=== PATIENT | male | born 1980 | race African-American/Black ===

== ENCOUNTER 2017-12-10 11:26 | Emergency (ER) | payer OTHER, BC ==
--- NOTE | 2017-12-10 12:14 | ER Document Report ---
ED General - General Chief Complaint: Knee Pain Stated Complaint: KNEE PAIN Time Seen by Provider: 12/10/17 12:12 Mode of Arrival: Ambulatory Information source: Patient Notes: Patient is a 37-year-old male who complains of left knee pain that started yesterday. 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 He has a history of musculoskeletal pain and wears a knee brace and ambulates with a cane. He states that he has been taking pain medicine for migraines which is provided minimal relief for his knee pain. He denies any swelling, bruising, redness or warmth. TRAVEL OUTSIDE OF THE [place] IN LAST 30 DAYS: No - Related Data Allergies/Adverse Reactions: No Known Drug Allergies Allergy (Severe, Verified 12/10/17 11:30) G6PD Allergy (Intermediate, Uncoded 05/23/11 12:24) Past Medical History - General Information source: Patient - Social History Smoking Status: Never Smoker Chew tobacco use (# tins/day): No Frequency of alcohol use: Rare Drug Abuse: None Family History: Reviewed & Not Pertinent Patient has suicidal ideation: No Patient has homicidal ideation: No - Past Medical History Cardiac Medical History: Denies: Hx Coronary Artery Disease, Hx Heart Attack, Hx Hypertension Pulmonary Medical History: Denies: Hx Asthma, Hx Bronchitis, Hx COPD, Hx Pneumonia Neurological Medical History: Reports: Hx Migraine. Denies: Hx Cerebrovascular Accident, Hx Seizures Renal/ Medical History: Denies: Hx Peritoneal Dialysis Musculoskeltal Medical History: Reports Hx Arthritis - arthritis,bursitis, tendonitis most major joints Past Surgical History: Reports: Hx Genitourinary Surgery, Hx Orthopedic Surgery. Denies: Hx Pacemaker - Immunizations Hx Diphtheria, Pertussis, Tetanus Vaccination: No Review of Systems - Review of Systems Constitutional: No symptoms reported EENT: No symptoms reported Cardiovascular: No symptoms reported Respiratory: No symptoms reported Gastrointestinal: No symptoms reported Genitourinary: No symptoms reported Male Genitourinary: No symptoms reported Musculoskeletal: See HPI Skin: No symptoms reported Hematologic/Lymphatic: No symptoms reported Neurological/Psychological: No symptoms reported Physical Exam - Vital signs Vitals: Temp Pulse Resp BP Pulse Ox 98.2 F 79 18 110/69 98 12/10/17 11:32 12/10/17 11:32 12/10/17 11:32 12/10/17 11:32 12/10/17 11:32 - Notes Notes: PHYSICAL EXAM: CONSTITUTIONAL: Alert and oriented, well-appearing and in no acute distress. HENT: Normocephalic, atraumatic. Trachea midline. Uvula midline. Moist mucous membranes. EYES: Pupils equal round and reactive to light, EOM intact. Sclera anicteric, conjunctiva are normal. No entrapment. NECK: supple without lymphadenopathy. No midline tenderness or paraspinous muscle spasms. No step-offs or deformities. ROM intact. HEART: Regular rate and rhythm without murmurs. LUNGS: CTAB and equal. No wheezes, rales or rhonchi. EXTREMITIES:mild bony tenderness along medial aspect of left knee without erythema, edema, ecchymosis or deformity. Normal range of motion, no pitting edema. No cyanosis. Cap Refill <3 seconds. NEURO: Cranial nerves grossly intact. Normal sensory/motor exams. PSYCH: Normal mood, normal affect. SKIN: Warm and dry. Normal turgor. No rashes or lesions noted. Course - Re-evaluation Re-evalutation: 12/10/17 12:13 Patient seen and examined. Vital signs stable, no acute distress. Has knee brace and cane at bedside. No obvious deformity on exam, no erythema or edema indicative of septic arthritis. Will obtain x-rays. 12/10/17 14:45 Reviewed imaging studies and reports - negative for acute findings. Discussed results with patient. He already has knee brace and cane for ambulation. Advised NSAIDs as needed for pain. Recommended follow-up with orthopedics. At this time, will discharge with return precautions and follow-up recommendations. Verbal discharge instructions given at the bedside and opportunity for questions given. Medication warnings reviewed. Patient is in agreement with this plan and has verbalized understanding of return precautions and the need for primary care follow-up in the next 24-72 hours. - Vital Signs Vital signs: Temp Pulse Resp BP Pulse Ox 98.3 F 81 18 103/66 100 12/10/17 14:55 12/10/17 14:55 12/10/17 14:55 12/10/17 14:55 12/10/17 14:55 - Diagnostic Test Radiology reviewed: Image reviewed, Reports reviewed Discharge - Discharge Clinical Impression: Left knee sprain Qualifiers: Encounter type: initial encounter Involved ligament of knee: unspecified ligament Qualified Code(s): S83.92XA - Sprain of unspecified site of left knee, initial encounter Condition: Stable Disposition: HOME, SELF-CARE Instructions: Ice & Elevation ([facility]), Suspected Internal Knee Injury ([facility]), Sprained Knee ([facility]) Prescriptions: Naproxen [Naprosyn 250 mg Tablet] 500 mg PO DAILY PRN #20 tablet PRN Reason:
--- NOTE | 2017-12-10 14:14 | RADIOLOGY REPORT (SQ) ---
EXAM DESCRIPTION: KNEE LEFT 4 VIEW COMPLETED DATE/TIME: 12/10/2017 1:59 pm REASON FOR STUDY: pain after twisting motion COMPARISON: None. NUMBER OF VIEWS: Four views. TECHNIQUE: AP, lateral, and both oblique radiographic images acquired of the left knee. LIMITATIONS: None. FINDINGS: MINERALIZATION: Normal. BONES: No acute fracture or dislocation. No worrisome bone lesions. JOINT: No effusion. SOFT TISSUES: No soft tissue swelling. No radio-opaque foreign body. OTHER: No other significant finding. IMPRESSION: NEGATIVE STUDY OF THE LEFT KNEE. NO RADIOGRAPHIC EVIDENCE OF ACUTE INJURY. TECHNICAL DOCUMENTATION: JOB ID: [id number] [employer]- All Rights Reserved Reading location - IP/workstation name: [email or web address]
[2017-12-10 14:58] VITALS: BP 103/66
== END 2017-12-10 14:58 | disposition home or self-care (01) ==
LOC: ER 11:26
DX: M25.562 Pain in left knee (principal); S83.92XA Sprain of unspecified site of left knee, initial encounter; X50.9XXA Other and unspecified overexertion or strenuous movements or postures, initial encounter; Y93.71 Activity, boxing
CPT/HCPCS: 99283

== ENCOUNTER 2018-01-30 12:45 | Emergency (ER) | payer OTHER, BC ==
[2018-01-30] MEDS ORDERED: DIPHENHYDRAMINE HCL 50 MG/ML VIAL IM ONE (12:58)
[2018-01-30] MEDS ORDERED: PROCHLORPERAZINE EDISYLATE INJ 10 MG/2 ML VIAL IM ONE (12:58)
[2018-01-30] MEDS ORDERED: DEXAMETHASONE SOD PHOS INJ 10 MG/1 ML VIAL IM ONE (12:58)
[2018-01-30] MEDS ORDERED: KETOROLAC TROMETHAMINE 60 MG/2 ML SDV IM ONE (12:58)
--- NOTE | 2018-01-30 13:02 | ER Document Report ---
ED Medical Screen (RME) - General Chief Complaint: Headache Stated Complaint: HEADACHE Time Seen by Provider: 01/30/18 12:52 Notes: 37-year-old male with history of migraines presents emergency department complaining of a right-sided headache that started 2-1/2 days ago. Patient states that he has stopped taking his usual preventative migraine medications because he feels like they have not been working. Patient states this headache is somewhat different than his usual headache. Patient states it usually starts in the back and works as way forward, states that this headache is only in the front of his head and around his right eye. States that sometimes his migraines are like this but not always. Denies any neck pain, denies any trauma. Denies any fever but his notes that he has been sweaty. Admits to some blurry vision. TRAVEL OUTSIDE OF THE [place] IN LAST 30 DAYS: No - Related Data Allergies/Adverse Reactions: No Known Drug Allergies Allergy (Severe, Verified 01/30/18 12:52) G6PD Allergy (Intermediate, Uncoded 01/30/18 12:52) Past Medical History - General Information source: Patient - Social History Cigarette use (# per day): No Chew tobacco use (# tins/day): No Frequency of alcohol use: None Drug Abuse: None - Past Medical History Cardiac Medical History: Denies: Hx Coronary Artery Disease, Hx Heart Attack, Hx Hypertension Pulmonary Medical History: Denies: Hx Asthma, Hx Bronchitis, Hx COPD, Hx Pneumonia Neurological Medical History: Reports: Hx Migraine. Denies: Hx Cerebrovascular Accident, Hx Seizures Renal/ Medical History: Denies: Hx Peritoneal Dialysis Musculoskeltal Medical History: Reports Hx Arthritis - arthritis,bursitis, tendonitis most major joints Past Surgical History: Reports: Hx Genitourinary Surgery, Hx Orthopedic Surgery. Denies: Hx Pacemaker - Immunizations Hx Diphtheria, Pertussis, Tetanus Vaccination: No Review of Systems - Review of Systems Constitutional: See HPI, Diaphoresis. denies: Fever EENT: See HPI, Blurred vision Cardiovascular: No symptoms reported Respiratory: No symptoms reported Neurological/Psychological: See HPI, Headaches Physical Exam - General General appearance: Alert In distress: Moderate Notes: Sitting in the chair, leaning to his right hand side, covering his right eye with his hand and wearing sunglasses. - HEENT Head: Normocephalic, Atraumatic Notes: Tenderness palpation over the right temporal artery, no enlargement of the right temporal artery. Pupils are equal round reactive to light and accommodation, extraocular movements intact, no facial droop, cranial nerves II through XII are grossly intact. - Respiratory Respiratory status: No respiratory distress - Skin Skin Temperature: Warm Skin Moisture: Dry Skin Color: Normal Course - Re-evaluation Re-evalutation: 01/30/18 13:01 Patient states he has multiple allergies but cannot recall that any of them are. States that he does not think he is allergic to Toradol, Compazine or Benadryl. Patient will be given all of these in addition to Decadron to prevent rebound headache as this headache has been going on for more than 24 hours. Doubt intracranial hemorrhage at this time. ESR and CRP have been ordered as he does have the tenderness palpation over the temporal artery. Visual acuity has been ordered as the patient is complaining of blurry vision as well.
[2018-01-30 13:27] VITALS: BP 120/79
[2018-01-30 13:32] LABS: ABSOLUTE EOSINOPHILS # (AUTO) 0.1 10^3/uL (0.0-0.6); ABSOLUTE LYMPHOCYTES (AUTO) 2.6 10^3/uL (0.5-4.7); ABSOLUTE MONOCYTES (AUTO) 0.6 10^3/uL (0.1-1.4); ABSOLUTE NEUT (AUTO) 3.2 10^3/uL (1.7-8.2); BASOPHILS % (AUTO) 0.5 % (0-2); HEMATOCRIT 45.1 % (37.9-51.0); HEMOGLOBIN 15.6 g/dL (13.5-17.0); LYMPHOCYTES % (AUTO) 40.6 % (13-45); MEAN CORPUSCULAR HEMOGLOBIN 29.7 pg (27.0-33.4); MEAN CORPUSCULAR HGB CONC 34.6 g/dL (32.0-36.0); MEAN CORPUSCULAR VOLUME 86 fl (80-97); MONOCYTES % (AUTO) 8.6 % (3-13); PLATELET COUNT 197 10^3/uL (150-450); RED BLOOD COUNT 5.26 10^6/uL (4.35-5.55); RED CELL DISTRIBUTION WIDTH 12.5 % (11.5-14.0); SEGMENTED NEUTROPHILS % (AUTO) 49.3 % (42-78); TOTAL CELLS COUNTED % (AUTO) 100 %; WHITE BLOOD COUNT 6.5 10^3/uL (4.0-10.5)
[2018-01-30 13:52] LABS: ALANINE AMINOTRANSFERASE 57 U/L (21-72); ALBUMIN 4.2 g/dL (3.5-5.0); ALKALINE PHOSPHATASE 67 U/L (38-126); ANION GAP 14 (5-19); ASPARTATE AMINO TRANSFERASE 42 U/L (17-59); BILIRUBIN,DIRECT 0.3 mg/dL (0.0-0.4); BILIRUBIN,TOTAL 0.8 mg/dL (0.2-1.3); BLOOD UREA NITROGEN 10 mg/dL (7-20); CALCIUM 9.6 mg/dL (8.4-10.2); CARBON DIOXIDE 30 mmol/L (22-30); CHLORIDE 104 mmol/L (98-107); GLUCOSE 94 mg/dL (75-110); POTASSIUM 4.1 mmol/L (3.6-5.0); SODIUM 147.6 mmol/L (137-145); TOTAL PROTEIN 7.1 g/dL (6.3-8.2)
[2018-01-30 13:54] LABS: C-REACTIVE PROTEIN < 5.0 mg/L (<10.0)
[2018-01-30 14:11] LABS: ERYTHROCYTE SEDIMENTATION RATE 4 mm/hr (0-15)
[2018-01-30] MEDS ORDERED: NORMAL SALINE 500 ML IV ONE (14:14)
[2018-01-30] MEDS ORDERED: MORPHINE SULFATE 10 MG/ML INJ IV ONE (14:15)
--- NOTE | 2018-01-30 14:16 | ER Document Report ---
ED General - General Chief Complaint: Headache Stated Complaint: HEADACHE Time Seen by Provider: 01/30/18 12:52 Mode of Arrival: Ambulatory Information source: Patient Notes: This is a 37-year-old man with a history of migraine headaches (he has been off all medicines), [id number] dehydrogenase deficiency, arthritis who presents to the emergency room with a headache for the past 2 days. This is similar to previous headaches. He does report nausea. He denies any fever, chills, nausea or vomiting. TRAVEL OUTSIDE OF THE [place] IN LAST 30 DAYS: No - HPI Onset: Yesterday Onset/Duration: Gradual Quality of pain: Dull Severity: Moderate Pain Level: 2 Associated symptoms: denies: Chills, Fever, Shortness of breath Exacerbated by: Movement Relieved by: Denies Similar symptoms previously: No Recently seen / treated by doctor: No - Related Data Allergies/Adverse Reactions: No Known Drug Allergies Allergy (Severe, Verified 01/30/18 12:52) G6PD Allergy (Intermediate, Uncoded 01/30/18 12:52) Past Medical History - General Information source: Patient - Social History Smoking Status: Never Smoker Cigarette use (# per day): No Chew tobacco use (# tins/day): No Frequency of alcohol use: None Drug Abuse: None Lives with: Family Family History: Reviewed & Not Pertinent Patient has suicidal ideation: No Patient has homicidal ideation: No - Past Medical History Cardiac Medical History: Denies: Hx Coronary Artery Disease, Hx Heart Attack, Hx Hypertension Pulmonary Medical History: Denies: Hx Asthma, Hx Bronchitis, Hx COPD, Hx Pneumonia Neurological Medical History: Reports: Hx Migraine. Denies: Hx Cerebrovascular Accident, Hx Seizures Renal/ Medical History: Denies: Hx Peritoneal Dialysis Musculoskeltal Medical History: Reports Hx Arthritis - arthritis,bursitis, tendonitis most major joints Past Surgical History: Reports: Hx Genitourinary Surgery, Hx Orthopedic Surgery. Denies: Hx Pacemaker - Immunizations Hx Diphtheria, Pertussis, Tetanus Vaccination: No Review of Systems - Review of Systems Constitutional: denies: Chills, Fever EENT: No symptoms reported Cardiovascular: No symptoms reported Respiratory: No symptoms reported Gastrointestinal: No symptoms reported Genitourinary: No symptoms reported Male Genitourinary: No symptoms reported Musculoskeletal: No symptoms reported Skin: No symptoms reported Hematologic/Lymphatic: No symptoms reported Neurological/Psychological: See HPI Physical Exam - Vital signs Vitals: Temp Pulse Resp BP Pulse Ox 98.7 F 107 H 16 120/79 96 01/30/18 12:48 01/30/18 12:48 01/30/18 12:48 01/30/18 12:48 01/30/18 12:48 Notes: Physical exam: GENERAL: 37-year-old man, alert and oriented 3, mild distress HEAD: Atraumatic, normocephalic. EYES: Pupils equal round and reactive to light, extraocular movements intact, sclera anicteric, conjunctiva are normal. ENT: TMs normal, nares patent, oropharynx clear without exudates. Moist mucous membranes. NECK: Normal range of motion, supple without obvious mass or JVD. LUNGS: Breath sounds clear to auscultation bilaterally and equal. No wheezes rales or rhonchi. HEART: Regular rate and rhythm without murmurs, rubs or gallops. ABDOMEN: Soft, normoactive bowel sounds. No tenderness to palpation. No guarding, no rebound. No masses appreciated. EXTREMITIES: Normal range of motion, no pitting or edema. No clubbing or cyanosis. NEUROLOGICAL: Cranial nerves II through XII grossly intact. Normal speech, moving all extremities. Photophobia is present, neck is supple, no Kernig's or Brudzinski's. PSYCH: Normal mood, normal affect. SKIN: Warm, Dry, normal turgor, no rashes or lesions noted. Course - Vital Signs Vital signs: Temp Pulse Resp BP Pulse Ox 98.7 F 107 H 16 120/79 96 01/30/18 12:48 01/30/18 12:48 01/30/18 12:48 01/30/18 12:48 01/30/18 12:48 - Laboratory Result Diagrams: 01/30/18 13:15 01/30/18 13:15 Laboratory results interpreted by me: 01/30/18 13:15 Sodium 147.6 H Discharge - Discharge Clinical Impression: Migraine headache Condition: Stable Disposition: HOME, SELF-CARE Instructions: Antinausea Medication ([facility]), Intravenous Compazine for Headaches ([facility]), Use of Diphenhydramine, Headache ([facility]), Reglan ([facility]) Additional Instructions: Note: Your labs looked good today. You were given a number of medicines for the migraine headache they are as follows: Compazine 10 mg IM (this is a nausea medicine that has migraine affects) Toradol 30 mg IM (this is an anti-inflammatory medicine) Benadryl 50 mg IM (this is often given with the nausea medicine and sometimes has synergistic effects for the headache). Your also given medicines through the IV: Reglan 10 mg IV (this is an antimigraine-nausea medicine). IV fluids IV morphine (4 mg: A relatively small dose). You were given oral medicines: 2 tabs of Fioricet Recommendations: Rest, drink plenty of fluids, take the Fioricet as needed. You can add ibuprofen to it. I would like you to follow-up with a neurologist. I put the name for 1 associated with the hospital. Return to the emergency room for worsening headache, fever or any concerns or getting worse. Prescriptions: Butalbital/Aspirin/Caffeine [Fiorinal 50-325-40 mg Capsule] 1 cap PO Q4 PRN #30 cap PRN Reason: Forms: Return to Work
[2018-01-30] MEDS ORDERED: METOCLOPRAMIDE HCL INJ/PF 10 MG/2 ML SDV IV ONE (16:12)
[2018-01-30] MEDS ORDERED: BUTALB/ACETAMINOPHEN/CAFFEINE 1 TAB EACH PO ONE (17:23)
== END 2018-01-30 18:59 | disposition home or self-care (01) ==
LOC: ER 12:45
DX: G43.909 Migraine, unspecified, not intractable, without status migrainosus (principal); R11.0 Nausea
CPT/HCPCS: 99283; 96372; 96374; 96375; 36415; 85025; 85652; 86140; 80053; J3490; J1200; J1885; J2765; J2270; J0780; J7040; J1100

== ENCOUNTER 2018-02-01 02:40 | Emergency (ER) | payer OTHER, BC ==
[2018-02-01] MEDS ORDERED: DEXAMETHASONE SOD PHOS INJ 10 MG/1 ML VIAL IV ONE (03:31)
[2018-02-01] MEDS ORDERED: NORMAL SALINE 1000 ML 1,000 ML IV ONE (03:31)
[2018-02-01] MEDS ORDERED: KETOROLAC TROMETHAMINE INJ/PF 30 MG/1 ML SDV IV ONE (03:31)
[2018-02-01] MEDS ORDERED: METOCLOPRAMIDE HCL INJ/PF 10 MG/2 ML SDV IV ONE (03:31)
[2018-02-01] MEDS ORDERED: HALOPERIDOL LACTATE INJ 5 MG/1 ML VIAL IV ONE (03:32)
--- NOTE | 2018-02-01 04:08 | ER Document Report ---
ED General - General Chief Complaint: Headache Stated Complaint: HEADACHE Time Seen by Provider: 02/01/18 03:31 Notes: Patient is a 37-year-old male who presents with 4 days of an ongoing migraine headache. He was seen in the emergency department 2 days ago for the same, at that time he states he had some improvement with the medications but not complete resolution. He states that the headache has been gradually worsening since onset. He describes the headache as a severe, throbbing, splitting pain to the bitemporal region. Worsened by movement, sounds or exertion. He has tried Fioricet without any improvement of the pain. He notes that he used to be on preventative medications but discontinued these some time ago and has had more regular and more intense headaches since that time. He has not seen a neurologist or his primary care doctor recently regarding his migraines. He denies any fever or constitutional symptoms. No focal weakness, numbness or altered mental status. He states this is very typical for his migraine headaches and that his headache again feels like a typical migraine headache for him. TRAVEL OUTSIDE OF THE [place] IN LAST 30 DAYS: No - Related Data Allergies/Adverse Reactions: No Known Drug Allergies Allergy (Severe, Verified 01/30/18 12:52) G6PD Allergy (Intermediate, Uncoded 01/30/18 12:52) Past Medical History - General Information source: Patient - Social History Smoking Status: Never Smoker Frequency of alcohol use: None Drug Abuse: None Lives with: Spouse/Significant other Family History: Reviewed & Not Pertinent Patient has suicidal ideation: No Patient has homicidal ideation: No - Past Medical History Cardiac Medical History: Denies: Hx Coronary Artery Disease, Hx Heart Attack, Hx Hypertension Pulmonary Medical History: Denies: Hx Asthma, Hx Bronchitis, Hx COPD, Hx Pneumonia Neurological Medical History: Reports: Hx Migraine. Denies: Hx Cerebrovascular Accident, Hx Seizures Renal/ Medical History: Denies: Hx Peritoneal Dialysis Musculoskeltal Medical History: Reports Hx Arthritis - arthritis,bursitis, tendonitis most major joints Past Surgical History: Reports: Hx Genitourinary Surgery, Hx Orthopedic Surgery. Denies: Hx Pacemaker - Immunizations Hx Diphtheria, Pertussis, Tetanus Vaccination: No Review of Systems - Review of Systems Notes: Constitutional: Negative for fever. HENT: Negative for sore throat. Eyes: Negative for visual changes. Cardiovascular: Negative for chest pain. Respiratory: Negative for shortness of breath. Gastrointestinal: Negative for abdominal pain, vomiting or diarrhea. Genitourinary: Negative for dysuria. Musculoskeletal: Negative for back pain. Skin: Negative for rash. Neurological: Positive for headache 10 point ROS negative except as marked above and in HPI. Physical Exam - Vital signs Vitals: Temp Pulse Resp BP Pulse Ox 98.8 F 92 16 116/71 95 02/01/18 02:56 02/01/18 02:56 02/01/18 02:56 02/01/18 02:56 02/01/18 02:56 Interpretation: Normal Notes: PHYSICAL EXAMINATION: GENERAL: Well-appearing, well-nourished and in no acute distress. HEAD: Atraumatic, normocephalic. EYES: Pupils equal round and reactive to light, extraocular movements intact, sclera anicteric, conjunctiva are normal. ENT: nares patent, oropharynx clear without exudates. Moist mucous membranes. NECK: Normal range of motion, supple without lymphadenopathy LUNGS: Breath sounds clear to auscultation bilaterally and equal. No wheezes rales or rhonchi. HEART: Regular rate and rhythm without murmurs ABDOMEN: Soft, nontender, normoactive bowel sounds. No guarding, no rebound. No masses appreciated. EXTREMITIES: Normal range of motion, no pitting or edema. No cyanosis. NEUROLOGICAL: Face symmetric. Tongue protrudes midline. Extraocular motions intact. Pupils are 2 mm and equally reactive. Normal speech, normal gait. 5 out of 5 strength in both the distal and proximal upper and lower extremities bilaterally. Sensation is grossly intact throughout. Finger to nose testing normal. Pronator drift normal. PSYCH: Normal mood, normal affect. SKIN: Warm, Dry, normal turgor, no rashes or lesions noted. Course - Re-evaluation Re-evalutation: 02/01/18 04:06 Presentation of a headache that appears to be most consistent with tension versus migrainous type headache. Headache was not maximal in onset, patient has no focal neurologic deficits, no nuchal rigidity, vital signs within normal limits, no papilledema, and patient is overall well in appearance. Based on clinical history and examination I do not suspect an acute subarachnoid hemorrhage, dural venous sinus thrombosis, acute meningitis, or intercranial mass. Given my low clinical suspicion for any acute life-threatening etiology, I do not feel advanced neuro imaging or laboratory testing is indicated at this time. Patient has had resolution of his headache after receiving a migraine cocktail. At this time will discharge with return precautions and follow-up recommendations. Verbal discharge instructions given a the bedside and opportunity for questions given. Medication warnings reviewed. Patient is in agreement with this plan and has verbalized understanding of return precautions and the need for primary care follow-up in the next 24-72 hours. - Vital Signs Vital signs: Temp Pulse Resp BP Pulse Ox 98.8 F 92 16 116/71 95 02/01/18 02:56 02/01/18 02:56 02/01/18 02:56 02/01/18 02:56 02/01/18 02:56 Discharge - Discharge Clinical Impression: Migraine headache Qualifiers: Migraine type: unspecified Status migrainosus presence: with status migrainosus Intractability: not intractable Qualified Code(s): G43.901 - Migraine, unspecified, not intractable, with status migrainosus Condition: Good Disposition: HOME, SELF-CARE Additional Instructions: You were seen today for a migraine headache. Please follow-up with your primary care doctor regarding today's ED visit. Return to emergency department immediately if you develop a headache that gets to its maximum severity within 20 minutes of onset, you pass out, you develop weakness, numbness, changes in your vision, become unable to keep any fluids down for more than 12 hours, or develop a fever greater than 100.4 degrees Fahrenheit. If you develop a similar migraine headache in the future I recommend that you immediately take 600 mg of ibuprofen and 50 mg of Benadryl and go to sleep as quickly as possible. This can often prevent your migraine headache from becoming severe.
[2018-02-01 05:03] VITALS: BP 111/72
== END 2018-02-01 05:03 | disposition home or self-care (01) ==
LOC: ER 02:40
DX: G43.901 Migraine, unspecified, not intractable, with status migrainosus (principal)
CPT/HCPCS: 99284; 96361; 96374; 96375; J1630; J1885; J7030; J1100